=== PATIENT | female | born 1970 | race Caucasian/White ===

== ENCOUNTER 2018-01-02 13:23 | Emergency (ER) | payer BC, OTHER ==
[~2018-01-02] VITALS: Ht 175.3 cm; Wt 104.3 kg
[~2018-01-02 13:23] MED LIST: LEVOTHYROXINE0.05 MG
[2018-01-02] MEDS ORDERED: PREDNISONE 20 M20 MG PO (17:38)
[2018-01-02] MEDS ORDERED: EPIPEN 2-P0.3 MG/0.3 IM (17:38)
[2018-01-02] MEDS ORDERED: BENADRYL25 MG PO (17:38)
[2018-01-02 17:45] VITALS: BP 131/78
== END 2018-01-02 17:45 | disposition home or self-care (01) ==
LOC: ER 13:23
DX: T88.6XXA Anaphylactic reaction due to adverse effect of correct drug or medicament properly administered, initial encounter (principal); T36.0X5A Adverse effect of penicillins, initial encounter; Y92.89 Other specified places as the place of occurrence of the external cause; E03.9 Hypothyroidism, unspecified; Z88.1 Allergy status to other antibiotic agents; Z88.8 Allergy status to other drugs, medicaments and biological substances

== ENCOUNTER → 2020-05-01 | Outpatient (CLI) | payer OTHER ==
[~2020-05-01] MED LIST changes: +BENADRYL25 MG PO; +EPIPEN 2-P0.3 MG/0.3 IM; +PREDNISONE 20 M20 MG PO
== END ==
LOC: CAT 10:27
PROVIDERS: ATTEND Internal Medicine
DX: Z13.6 Encounter for screening for cardiovascular disorders (principal); I25.10 Atherosclerotic heart disease of native coronary artery without angina pectoris; E78.00 Pure hypercholesterolemia, unspecified